=== PATIENT | female | born 1965 | race African-American/Black ===

== ENCOUNTER 2022-04-25 12:31 | Emergency (ER) | payer MEDICARE, MEDICAID ==
[~2022-04-25] VITALS: Ht 162.6 cm; Wt 94.5 kg
[~2022-04-25 12:31] MED LIST: ADVAIR DISK1 INH; ADVAIR DISK2 IN; ALBUTEROL S2.5 MG/.5 IN; ALBUTEROL0.083 % IN; AMOXICILLIN500 MG PO; ATROVENT HFA17 MCG IN; BENADRYL 50MG C50 MG PO; CLARITIN10 M1 PO; FERROUS GLUC324 MG PO; FLEXERIL PO; FLONASE NASAL50 MCG; FLUARIX QUADRIV1 INJ IM; FLUZONE SPLT1 M1 IM; GARAMYCIN0.31 OP; IPRATROPIUM BROMIDE NEB; KEFLEX500 MG PO; MECLIZINE25 MG PO; MEDDOSEPAK PO; METOPROL TAR25 MG PO; NAPROSYN500 MG OR; PREDNISONE10 MG PO; PROVENTIL0.083 % IN; VENTOLIN HF1 IN; VENTOLIN HFA IN; [UNRECOGNIZED DRUG - CODE] EX
[2022-04-25 12:36] VITALS: BP 155/70
[2022-04-25 12:59] LABS: HEMATOCRIT 40.6 % (37.0-47.0); HEMOGLOBIN 12.9 g/dl (12.0-16.0); IMMATURE GRANULOCYTES 0.2 % (0.0-5.0); MEAN CELL VOLUME 89.4 fL CALC (80.0-100.0); MEAN CORPUSCULAR HGB 28.4 pG CALC (26.0-32.0); MEAN CORPUSCULAR HGB CONC 31.8 g/dL CAL (32.0-36.0); NEUT# 2.77 thou/uL (2.00-7.15); RED BLOOD COUNT 4.54 mill/uL (4.20-5.60); RED CELL DISTRI WIDTH 13.1 % (11.5-15.5)
[2022-04-25 13:01] VITALS: BP 136/61
[2022-04-25 13:06] LABS: ALBUMIN 4.8 g/dL (3.2-5.0); ALKALINE PHOSPHATASE 78 u/l (38-126); ANION GAP 13 (6-22 (CALC)); BILIRUBIN, TOTAL 0.5 mg/dL (0.0-1.4); BUN 13 mg/dL (7-17); BUN/CREATININE RATIO 12 (12-20 (CALC)); CARBON DIOXIDE 27 mmol/l (22-30); CHLORIDE 103 mmol/l (95-108); CREATININE 1.1 mg/dL (0.5-1.0); GFR FOR AFR.AMER. > 60 ML/MIN (>=60 (CALC)); GFR OTHER RACES 51 ML/MIN (>=60 (CALC)); POTASSIUM 4.6 mmol/l (3.5-5.1); SGOT/AST 29 u/l (14-36); SODIUM 139 mmol/l (137-146); TOTAL PROTEIN 8.7 g/dL (6.3-8.2)
[2022-04-25 13:30] VITALS: BP 132/74
[2022-04-25 14:00] VITALS: BP 127/63
[2022-04-25] MEDS ORDERED: PREDNISONE50 MG PO ×2 (14:36→14:37)
[2022-04-25 14:45] VITALS: BP 127/63
== END 2022-04-25 14:45 | disposition home or self-care (01) ==
LOC: ED 12:31
PROVIDERS: Family Medicine
DX: J45.901 Unspecified asthma with (acute) exacerbation (principal); Z20.822 Contact with and (suspected) exposure to COVID-19

== ENCOUNTER 2022-11-09 17:01 | Emergency (ER) | payer MEDICARE, MEDICAID ==
[2022-11-09] VITALS (10 sets, daily range): BP systolic 114–147; BP diastolic 61–75
[~2022-11-09] VITALS: Ht 162.6 cm; Wt 96.1 kg
[~2022-11-09 17:01] MED LIST changes: +PREDNISONE50 MG PO
[2022-11-09] MEDS ORDERED: NAPROXEN500 MG PO (19:34)
== END 2022-11-09 19:48 | disposition home or self-care (01) ==
LOC: ED 17:01
DX: M76.51 Patellar tendinitis, right knee (principal)